=== PATIENT | female | born 1985 | race American Indian/Alaskan Native ===

== ENCOUNTER 2017-05-02 09:43 | Emergency (ER) | payer MEDICAID ==
[2017-05-02 10:28] LABS: Bilirubin,Urine NEG (Negative); Blood,Urine LG (Negative); Ketones,Urine NEG (Negative); Leukocyte Esterase,Urine NEG (Negative); Mucus,Urine FEW /HPF; Nitrite,Urine NEG (Negative); Protein,Urine <15 mg/dL mg/dL (Negative); Urobilinogen,Urine < 2.0 mg/dL (<2.0)
[2017-05-02 11:04] LABS: Basophils % (Auto) 0.3 % (0.0-1.8); Eosinophils % (Auto) 2.1 % (0.0-4.3); Hemoglobin 11.3 gm/dl (10.1-14.3); Mean Corpuscular HGB Conc 32 % (30-34); Mean Corpuscular Hemoglobin 28 pg (28-32); Mean Corpuscular Volume 85 fl (79-97); Platelet Count 252 K/mm3 (140-440); Red Cell Distribution Width 15.7 % (13.2-15.2); White Blood Count 6.3 K/mm3 (4.5-11.0)
--- NOTE | 2017-05-02 15:03 | Emergency Department Report ---
<HUYEN COLEMAN M - Last Filed: 05/02/17 18:52> ED Female HPI - General Chief complaint: Abdominal Pain Stated complaint: POSS MISCARRIAGE/5 WKS PREG Time Seen by Provider: 05/02/17 14:40 Source: patient Mode of arrival: Ambulatory Limitations: No Limitations - History of Present Illness Initial comments: PT states she is five weeks . PT reports bleeding since Friday. PT states the bleeding started off as brown and is now bright red. PT states she is having a mildly crampy pain that she rates 4/10. PT is . pt has her first release and technical records clerk appointment on Friday for this . PT states she last saw her ob/ semiconductor package symbol stamper 2 weeks ago. PT reports hx of BV but denies hx of STDs/ PID MD Complaint: vaginal bleeding Onset/Timin -: Gradual, days(s) Location: suprapubic Radiation: non-radiating Severity scale (0 -10): 4 - Related Data Home Medications Medication Instructions Recorded Confirmed Last Taken No Known Home Medications [No 08/23/15 08/23/15 Unknown Reported Home Medications] Allergies Allergy/AdvReac Type Severity Reaction Status Date / Time tea AdvReac Swelling Uncoded 05/02/17 09:56 ED Review of Systems ROS: Stated complaint: POSS MISCARRIAGE/5 WKS PREG Other details as noted in HPI ED Past Medical Hx - Past Medical History Previous Medical History?: No Hx Hypertension: No Hx Congestive Heart Failure: No Hx Diabetes: No Hx Deep Vein Thrombosis: No Hx Renal Disease: No Hx Sickle Cell Disease: No Hx Seizures: No Hx Asthma: No Hx COPD: No Hx HIV: No - Surgical History Past Surgical History?: No - Social History Smoking Status: Current Every Day Smoker Substance Use Type: Alcohol - Medications Home Medications: Home Medications Medication Instructions Recorded Confirmed Last Taken Type No Known Home Medications [No 08/23/15 08/23/15 Unknown History Reported Home Medications] ED Physical Exam - General Limitations: No Limitations General appearance: alert, in no apparent distress - Head Head exam: Present: atraumatic, normocephalic, normal inspection - Eye Eye exam: Present: normal appearance, PERRL, EOMI. Absent: conjunctival injection - ENT ENT exam: Present: normal exam, normal external ear exam - Neck Neck exam: Present: normal inspection, full ROM. Absent: tenderness, lymphadenopathy - Respiratory Respiratory exam: Present: normal lung sounds bilaterally. Absent: respiratory distress, wheezes, rales, rhonchi, stridor, chest wall tenderness - Cardiovascular Cardiovascular Exam: Present: regular rate, normal rhythm, normal heart sounds - GI/Abdominal GI/Abdominal exam: Present: soft, normal bowel sounds. Absent: tenderness, guarding, rebound, rigid - Extremities Exam Extremities exam: Present: normal inspection, full ROM - Back Exam Back exam: Present: normal inspection, full ROM. Absent: tenderness, CVA tenderness (R), CVA tenderness (L), muscle spasm, paraspinal tenderness, vertebral tenderness - Neurological Exam Neurological exam: Present: alert, oriented X3, normal gait - Psychiatric Psychiatric exam: Present: normal affect, normal mood - Skin Skin exam: Present: warm, dry, intact, normal color ED Course Vital Signs 05/02/17 05/02/17 05/02/17 09:48 14:50 16:59 Temperature 98.4 F 98.3 F Pulse Rate 88 69 Respiratory 16 18 18 Rate Blood Pressure 117/78 Blood Pressure 114/75 [Right] O2 Sat by Pulse 100 100 100 Oximetry 05/02/17 19:58 Temperature 98.3 F Pulse Rate 69 Respiratory 18 Rate Blood Pressure 117/78 Blood Pressure [Right] O2 Sat by Pulse 100 Oximetry - Reevaluation(s) Reevaluation #1: 05/02/17 14:58 PT aware of US result and need for emergent OB/ HIGH SPEED WARPER TENDER consult. Dr Ponce aware of pt and agrees with plan of care. Reevaluation #2: 05/02/17 15:52 PT aware of plan Reevaluation #3: 05/02/17 17:10 Dr Negron at pt's bedside Reevaluation #4: 05/02/17 18:01 PT was seen by WAIST FITTER. Admission was offered, pt declined. - Consultations Consultation #1: 05/02/17 14:40 Dr Sol - US WAIST FITTER - ectopic on Left 05/02/17 15:03 Dr Sol not available to give further detail on US. Dr Santos states call back later for more information Consultation #2: 05/02/17 15:14 My OBGYN called - spoke with Christie, correctional probation officer, who states Dr Negron delivery and installation subcontractor. Christie states she will inform Dr Negron about pt and us report and have her call back 05/02/17 15:47 Dr Negron called and states she will come evaluate the pt. (eta 45 min) - Pulse Oximetry Interpretation Digit-Finger Initial Pulse Oximetry Readin Actions Taken: none ED Medical Decision Making - Lab Data Result diagrams: 05/02/17 10:01 - Radiology Data Radiology results: pending US - ectopic on Left - Differential Diagnosis threatened ab, ectopic, uti Critical care attestation.: If time is entered above; I have spent that time in minutes in the direct care of this critically ill patient, excluding procedure time. ED Disposition Disposition: DC-07 LEFT AGAINST MED ADVICE Is pt being admited?: No Does the pt Need Aspirin: No Condition: Undetermined Instructions: Abdominal Pain (ED) Referrals: PRIMARY CARE, [Primary Care Provider] - 3-5 Days MISAEL NEGRON MD [Staff Physician] - 3-5 Days Forms: AMA Form <ARMANDO PONCE - Last Filed: 05/02/17 20:29> ED Course - Reevaluation(s) Reevaluation #5: 05/02/17 20:27 Patient left AGAINST MEDICAL ADVICE. Patient alert and oriented 3, risks of leaving, including , disability, paralysis, loss of quality of life were explained to the patient by staff members. Patient articulated understanding. Patient further understands that she can return to the ER right away if and when she changes her mind. 05/02/17 20:28 ED Medical Decision Making - Lab Data Result diagrams: 05/02/17 10:01
--- NOTE | 2017-05-02 15:31 | Ultrasound Report ---
OB ultrasound: patient with pain and bleeding. Endovaginal and transabdominal imaging demonstrates a retroverted uterus measuring 5.1 x 6.0 x 8.6 cm. The endometrium is minimally inhomogeneous and has a width of 25 mm. No evidence of intrauterine gestation. Images of the right ovary demonstrate measures 3.6 cm containing several follicles. The left ovary measures 3.8 cm containing a peripheral thick walled cyst that could represent a small corpus luteum. Adjacent to the uterus on the left there is a mass containing a central saclike structure measuring 5.4 mm in diameter. Within the sac there is a small ring shaped structure consistent with yolk sac. This echogenic collection within the cul-de-sac consistent with hemorrhage. Impression: The findings are consistent with a left ectopic .
--- NOTE | 2017-05-02 17:23 | Event Note ---
Date: 05/02/17 Called to evaluate patient with a possible ectopic . Patient states she started spotting dark brown blood that became bright red only when she wiped after urination. She denies pain or heavy bleeding. Patient resting in bed in ED, no distress. States she needs to leave to p/u her daughter AVSS, Abdomen soft NT. US images, report and labs reviewed, A neg. QBHCG only 1700, no evidence of blood her pelvis, abdominal exam w/o evidence of a surgical abdomen. US without obvious "ring of fire". US report and labs discussed with the patient, concern for ectopic vs early IUP(twins) or SAB explailned. Recommend admission for observation and repeat qbhcg in am. States she cannot stay because her daughter will be stranded and she does not have anyone who can pick her up. Emphasized if she jhas an ectopic it could rupture while she's driving and she could faint therefore she could have an accident that could kill her, her daughter or anyone else on the road. Also explained if she has an ectopic and it ruptures she could . She voiced understanding and still desires to leave AMA, she will call or come back to ED for any problems or concerns.
[2017-05-02 19:58] VITALS: BP 117/78
== END 2017-05-02 20:45 | disposition left against medical advice (07) ==
LOC: ED 09:43
DX: O26.891 Other specified pregnancy related conditions, first trimester (principal); R10.30 Lower abdominal pain, unspecified; F17.210 Nicotine dependence, cigarettes, uncomplicated; Z91.018 Allergy to other foods; Z3A.01 Less than 8 weeks gestation of pregnancy
CPT/HCPCS: 36415; 76801; 76817; 81001; 84702; 85025; 86850; 86900; 86901; 99284; J2790

== ENCOUNTER 2017-05-03 06:48 | Emergency (ER) | payer MEDICAID ==
[2017-05-03 07:06] VITALS: BP 104/66
--- NOTE | 2017-05-03 08:03 | Emergency Department Report ---
ED Female HPI - General Chief complaint: Vaginal Bleeding Stated complaint: FOLLOW UP Time Seen by Provider: 05/03/17 07:51 Source: patient Mode of arrival: Ambulatory Limitations: No Limitations - History of Present Illness Initial comments: Patient is a 31-year-old female referred from OB here with complaint of vaginal spotting and pain. Patient likely has a competent and is planned to go to the OR today. She is in no dizziness lightheadedness abdominal pain currently. -: Sudden Improves with: none Worsens with: none - Related Data Home Medications Medication Instructions Recorded Confirmed Last Taken No Known Home Medications [No 08/23/15 08/23/15 Unknown Reported Home Medications] Allergies Allergy/AdvReac Type Severity Reaction Status Date / Time tea AdvReac Swelling Uncoded 05/02/17 09:56 ED Review of Systems ROS: Stated complaint: FOLLOW UP Other details as noted in HPI Constitutional: denies: chills, fever Respiratory: denies: cough, shortness of breath, SOB with exertion Cardiovascular: denies: chest pain, palpitations Endocrine: denies: excessive sweating, increased urine Gastrointestinal: denies: abdominal pain, nausea Genitourinary: denies: urgency, hematuria Skin: denies: rash, lesions Neurological: as per HPI. denies: headache, weakness ED Past Medical Hx - Past Medical History Previous Medical History?: No Hx Hypertension: No Hx Congestive Heart Failure: No Hx Diabetes: No Hx Deep Vein Thrombosis: No Hx Renal Disease: No Hx Sickle Cell Disease: No Hx Seizures: No Hx Asthma: No Hx COPD: No Hx HIV: No - Surgical History Past Surgical History?: No - Family History Family history: no significant - Social History Smoking Status: Current Every Day Smoker Substance Use Type: None - Medications Home Medications: Home Medications Medication Instructions Recorded Confirmed Last Taken Type No Known Home Medications [No 08/23/15 08/23/15 Unknown History Reported Home Medications] ED Physical Exam - General Limitations: No Limitations General appearance: alert, in no apparent distress - Head Head exam: Present: atraumatic, normocephalic - Eye Eye exam: Present: normal appearance. Absent: scleral icterus, conjunctival injection - Neck Neck exam: Absent: tenderness, lymphadenopathy - Respiratory Respiratory exam: Present: normal lung sounds bilaterally. Absent: respiratory distress, wheezes - Cardiovascular Cardiovascular Exam: Present: regular rate, normal rhythm - GI/Abdominal GI/Abdominal exam: Present: soft. Absent: distended, tenderness, guarding - Neurological Exam Neurological exam: Present: alert, oriented X3 - Skin Skin exam: Present: warm, dry, intact, normal color ED Course Vital Signs 05/03/17 05/03/17 07:02 07:41 Temperature 98.4 F Pulse Rate 98 H Respiratory 18 20 Rate Blood Pressure 104/66 [Right] O2 Sat by Pulse 97 100 Oximetry ED Medical Decision Making - Medical Decision Making Patient to be admitted to the OB service. Critical care attestation.: If time is entered above; I have spent that time in minutes in the direct care of this critically ill patient, excluding procedure time. ED Disposition Clinical Impression: Ectopic Disposition: 09 OP ADMIT IP TO THIS HOSP Is pt being admited?: Yes Condition: Stable Referrals: PRIMARY CARE, [Primary Care Provider] - 3-5 Days
== END 2017-05-03 08:45 | disposition admitted as inpatient to this hospital (09) ==
LOC: ED 06:48
DX: O00.80 Other ectopic pregnancy without intrauterine pregnancy (principal); Z3A.00 Weeks of gestation of pregnancy not specified

== ENCOUNTER 2017-05-03 07:34 | Inpatient (IN) | payer MEDICAID ==
[2017-05-03] MEDS ORDERED: LACTATED RINGERS 1,000 ML IV SCH (10:00)
--- NOTE | 2017-05-03 10:43 | Short Stay Summary ---
Short Stay Documentation Date of service: 05/03/17 Narrative H&P: 31-year-old female, L1, whose last menstrual period began on March 25. She came to the emergency department yesterday thinking she had had a miscarriage since she had been bleeding since 04/29/2017. She was seen in the emergency department by the emergency doctor and by Dr. Negron. The patient had to leave for urgent family reasons and agreed to come back today for possible treatment of possible ectopic . She did return to the emergency department last night to receive RhoGAM because her blood type is A-. Her hCG yesterday was 1748, repeat today was 2522. CMP,CBC wnl Hct 33. Transvaginal ultrasonography done yesterday is strongly suggestive of left ectopic in the mid-portion of the left fallopian tube. There is no sac in the uterus. There is a small to medium amount of free fluid in the cul- de-sac. There is an apparent gestational sac in the left fallopian tube area and this sac appears to have a partially collapsed yolk sac and a pole. No obvious cardiac activity because it is too small. In my professional opinion, this is a definite left ectopic despite a fairly low level of hCG, currently at 2522. I discussed these issues with the patient, who is currently having absolutely no pain at all. I told rougher felt certain that this was a left ectopic and that she needed treatment for this. The best option for treatment at this time is intramuscular methotrexate at a dose of 50 g per metered square which she will be given after a repeat hCG and CMP and CBC is repeated today. She has already received RhoGAM. She understands the warning signs of impending rupture of an ectopic and knows to come back to the hospital immediately should this occur. She understands that roughly 15% of medically treated ectopic pregnancies and up having surgery for rupture. She also understands the follow-up for ectopic , which will be to be seen as close as possible to day 3 and day 7. Repeat hCGs will be done at that time and then she will need weekly follow-up until hCGs return to 0. Past OB history is 2 vaginal deliveries, one of which had trisomy 13 and shortly after . Known Rh negative. - History Principal diagnosis: ectopic Past Medical History: No medical history Past Surgical History: No surgical history Social history: smoking - Allergies and Medications Current Medications: Allergies tea Adverse Reaction (Uncoded 05/02/17 09:56) Swelling Home Medications Medication Instructions Recorded Confirmed Last Taken Type No Known Home Medications [No 08/23/15 08/23/15 Unknown History Reported Home Medications] Active Medications Lactated Ringer's (Lactated Ringers) 1,000 mls @ 125 mls/hr IV DIRECT HARMAN Methotrexate (Methotrexate) 88 mg 50 mg/m2 (88 mg) IM ONCE ONE Stop: 05/03/17 12:01 - Physical exam General appearance: no acute distress Lungs: Clear to auscultation, Normal air movement Breasts: deferred Heart: Regular rate Gastrointestinal: normal, no tenderness, no guarding Female Genitourinary: deferred Extremities: no ischemia Neurological: Normal gait, Normal speech, Normal tone - Hospital course Hospital course: Patient was admitted to the hospital and determined to have a left ectopic . Risk and complications were discussed with the patient and laboratory values were checked prior to giving IM methotrexate at a dose of 50 g per metered square and she was discharged for outpatient follow-up. She received Rhogam the night before. - Disposition Condition at discharge: Good Disposition: DC-01 TO HOME OR SELFCARE - Discharge Diagnoses (1) Ectopic , tubal Status: Acute Qualifiers: Intrauterine status: without intrauterine Qualified Code(s): O00.10 - Tubal without intrauterine Comment: Treated with Methotrxate after checking labs. Rhogam previously administered. Short Stay Discharge Plan Activity: no restrictions Weight Bearing Status: Full Weight Bearing Diet: regular Wound: other (N/A) Follow up with: CRYSTAL KERNS MD [Staff Physician] - 7 Days (Needs office visit on Day 3 and Day 7 (or as close as possible))
[2017-05-03 11:07] LABS: Hematocrit 33.7 % (30.3-42.9); Hemoglobin 10.7 gm/dl (10.1-14.3); Mean Corpuscular HGB Conc 32 % (30-34); Mean Corpuscular Hemoglobin 27 pg (28-32); Mean Corpuscular Volume 85 fl (79-97); Platelet Count 244 K/mm3 (140-440); Red Blood Count 3.96 M/mm3 (3.65-5.03); Red Cell Distribution Width 15.2 % (13.2-15.2); White Blood Count 6.4 K/mm3 (4.5-11.0)
[2017-05-03 11:42] LABS: Albumin/Globulin Ratio 1.2 %; Alkaline Phosphatase 35 units/L (35-129); Blood Urea Nitrogen 10 mg/dL (7-17); Calcium 8.7 mg/dL (8.4-10.2); Carbon Dioxide 24 mmol/L (22-30); Chloride 102.3 mmol/L (98-107); Glucose 88 mg/dL (65-100); Sodium 137 mmol/L (137-145); Total Protein 7.4 g/dL (6.3-8.2)
[2017-05-03] MEDS ORDERED: METHOTREXATE IM NR (12:00)
[2017-05-03 12:04] LABS: Alanine Aminotransferase 13 units/L (7-56); Anion Gap 16 mmol/L; Potassium 4.9 mmol/L (3.6-5.0)
[2017-05-03] MEDS: METHOTREXATE IM NR ×2 (14:49→14:50)
[2017-05-03 18:20] VITALS: BP 96/67
== END 2017-05-03 15:23 | disposition home or self-care (01) | DRG 777 ==
LOC: OB 07:34 → UNDOADMOB 07:34 → EDSTATUS 07:42 → OB 09:13
PROVIDERS: ADMIT Obstetrics & Gynecology; ATTEND Obstetrics & Gynecology
DX: O00.10 Tubal pregnancy without intrauterine pregnancy (principal); Z31.82 Encounter for Rh incompatibility status
CPT/HCPCS: 36415; 80053; 84702; 85027; J9260

== ENCOUNTER 2017-05-09 16:00 | Day surgery (SDC) | payer MEDICAID ==
[2017-05-09] MEDS ORDERED: BLOXIVERZ ONE (16:30)
[2017-05-09] MEDS ORDERED: ROBINUL ONE (16:30)
--- NOTE | 2017-05-09 16:38 | History and Physical Report ---
History of Present Illness Date of examination: 05/09/17 Chief complaint: Ectopic History of present illness: This is a 31year old female with a know ectopic treated with Methotrexate 05/03/2017. She presented to the office earlier today c/o mild abdominal pain and scant bleeding. Her exam was negative for a surgical abdomen. She decline surgical intervention and a plan for conservative management was established and she was allow home. She called back complaining og increased pain, dizziness and lightheadedness and presented back to the office with BP 98/60, hr 80 and tender abdomen. She was immediately sent ED by EMS for admission for laparoscopy. Past History Past Medical History: No medical history Past Surgical History: No surgical history Medications and Allergies Allergies Allergy/AdvReac Type Severity Reaction Status Date / Time tea AdvReac Swelling Uncoded 05/02/17 09:56 Home Medications Medication Instructions Recorded Confirmed Last Taken Type No Known Home Medications [No 08/23/15 08/23/15 Unknown History Reported Home Medications] Active Meds: Active Medications Cefazolin Sodium (Ancef/Sterile Water 2 Gm/20 Ml) 2 gm in 20 mls @ 80 mls/hr IV PREOP NR PRN Reason: Protocol Review of Systems All systems: negative - Genitourinary Genitourinary: abnormal vaginal bleeding Exam Vital Signs Temp Pulse Resp BP Pulse Ox 98.1 F 96 H 16 110/70 98 05/09/17 16:17 05/09/17 16:17 05/09/17 16:17 05/09/17 16:17 05/09/17 16:17 - General physical appearance Positive: well developed, well nourished, moderate distress - Respiratory Positive: normal respiratory effort - Cardiovascular Rhythm: regular - Abdomen Abdomen: Present: tender, rebound, guarding Assessment and Plan - Patient Problems (1) Ectopic , tubal Status: Acute Qualifiers: Intrauterine status: without intrauterine Qualified Code(s): O00.10 - Tubal without intrauterine Plan to address problem: Patient now unstable with surgical abdomen will proceed with laparoscopy, salpingectomy and other indicated procedures
[2017-05-09] MEDS ORDERED: PEPCID IV ONE (16:55)
[2017-05-09] MEDS ORDERED: VERSED ONE (16:55)
[2017-05-09] MEDS ORDERED: NACL 0.9% 1000 ML 1,000 ML ONE ×2 (16:55→19:59)
[2017-05-09] MEDS ORDERED: ANCEF/STERILE WATER 2 GM/20 ML 2 GM/20 ML SYRINGE IV NR (17:00)
[2017-05-09] MEDS ORDERED: DILAUDID ONE (17:10)
[2017-05-09] MEDS ORDERED: DIPRIVAN 10 MG/ML IV ONE (17:10)
[2017-05-09] MEDS ORDERED: ZEMURON IV ONE (17:12)
--- NOTE | 2017-05-09 17:18 | Anesthesia Consultation ---
Anesthesia Consult and Med Hx Date of service: 05/09/17 - Airway Anesthetic Teeth Evaluation: Poor (two broken teeth in the back) ROM Head & Neck: Adequate Mental/Hyoid Distance: Adequate Mallampati Class: Class II Intubation Access Assessment: Probably Good - Pre-Operative Health Status ASA Pre-Surgery Classification: ASA2, Emergency Proposed Anesthetic Plan: General - Pulmonary Hx Smoking: Yes (everyday smoker) Hx Asthma: No COPD: No Hx Pneumonia: No - Cardiovascular System Hx Hypertension: No - Central Nervous System Hx Seizures: No Hx Psychiatric Problems: No - Endocrine Hx Renal Disease: No Hx End Stage Renal Disease: No Hx Hypothyroidism: No Hx Hyperthyroidism: No - Hematic Hx Anemia: No Hx Sickle Cell Disease: No - Other Systems Hx Alcohol Use: Yes - Additional Comments Anesthesia Medical History Comments: ectopic
--- NOTE | 2017-05-09 17:19 | Anesthesia Day of Surgery ---
Anesthesia Day of Surgery - Day of Surgery Patient Examined: Yes Patient H&P Reviewed: Yes Patient is NPO: No (had wings @ 13:00, shot of alcohol @ 15:00)
[2017-05-09 17:28] LABS: Hematocrit 31.4 % (30.3-42.9); Hemoglobin 10.1 gm/dl (10.1-14.3); Mean Corpuscular HGB Conc 32 % (30-34); Mean Corpuscular Hemoglobin 28 pg (28-32); Mean Corpuscular Volume 86 fl (79-97); Platelet Count 242 K/mm3 (140-440); Red Blood Count 3.66 M/mm3 (3.65-5.03); Red Cell Distribution Width 15.1 % (13.2-15.2)
[2017-05-09] MEDS ORDERED: XYLOCAINE MPF 2% ONE (17:36)
[2017-05-09] MEDS ORDERED: QUELICIN ONE (17:36)
[2017-05-09] MEDS ORDERED: MARCAINE 0.5% INFILTRATI ONE ×2 (17:52)
[2017-05-09] MEDS ORDERED: NACL 0.9% IR ONE ×2 (17:52)
[2017-05-09] MEDS ORDERED: MARCAINE 0.5% 30 ML INFILTRATI ONE (17:53)
[2017-05-09] MEDS ORDERED: DECADRON ONE (17:57)
[2017-05-09] MEDS ORDERED: ZOFRAN ONE (17:57)
[2017-05-09] MEDS ORDERED: TORADOL ONE (18:38)
--- NOTE | 2017-05-09 19:16 | Operative Report ---
Operative Report Operative Report: Date of procedure: 05/09/2017 Pre-operative diagnosis: Ectopic Post-operative diagnosis: Left ectopic Procedure name(s): Laparoscopic left salpingectomy Surgeon: Yadi Negron MD Elementary Tutor: Certified surgical assistant Anesthesia: General Findings: Approximately 100 mL blood noted in her belly on initial entry into the abdomen. Large left tubal ectopic . Thin filmy adhesions involving both ovaries. Grossly normal right fallopian tube. Grossly normal ovaries bilaterally. Anesthesiologist: Dr. Rabia Crump Complications: None Estimated blood loss: Minimal Procedure: After risks, benefits, complications, consequences and alternatives for this procedure were discussed the patient, she voiced understanding and desired to proceed, she was taken to the OR where general anesthesia was induced. She was placed in the dorsal lithotomy position. Exam under anesthesia remarkable. The adnexa unremarkable. She was then prepped and draped in the usual sterile fashion. Timeout was performed. A Garcia catheter was introduced into the bladder with drainage of clear yellow urine. A bivalve speculum was introduced into the vagina. Anterior anterior lip of the cervix was grasped with a single-tooth tenaculum. The uterus was sounded to approximately 9 cm. The cervix was dilated to allow the Sargis uterine manipulator. The tenaculum and speculum were removed. Sterile gloves placed attention was turned to the abdomen. A 5 mm supraumbilical incision was made in the midline. A 5 mm Optiview trocar was introduced through this incision with scope and camera attached. No bowel, bladder, ureteral, or major vascular injury was noted. The abdomen was insufflated. Large amount of blood was noted to be in the pelvis. Patient was placed in steep Trendelenburg position. The above findings were noted. Additional 5 mm bladeless trocar was placed right lower quadrant and in the suprapubic region approximately 2 cm superior to the symphysis pubis under direct visualization. Again no bowel, bladder, ureteral or major vascular injury was noted. All trocars placed under direct visualization again no bowel, bladder, ureteral or major vascular injury was noted. The left tube was then elevated and using the 5 mm [place] LigaSure, a left salpingectomy was performed. Suprapubic incision was extended and a 10 mm weightless trocar was placed. The tube with the ectopic was placed in the Endo Catch through the 10 mm trocar. This was removed through the 10 mm suprapubic incision. Trocar was reintroduced under direct visualization. The pelvis was irrigated with warm normal saline. Grossly normal right tube and bilateral ovaries were noted. Attention was turned again to the left adnexa where hemostasis was noted. Surgicel was placed over the operative field followed by Interceed to prevent adhesions. Normal uterus was noted. The fascia of the 10 mm incision was reapproximated using 0 Vicryl using the Geoff-Alia closure device. Once hemostasis noted the procedure was ended the remaining trochars were removed the abdomen was desufflated. The incisions were infused with half percent Marcaine without epinephrine. The skin incisions were approximated using 4-0 Vicryl in a subcuticular manner. Hemostasis was noted. The uterine manipulator was removed. Hemostasis noted on the cervix. Drainage of clear yellow urine into the Garcia catheter was noted. Then the Garcia catheter was removed. Urine out was noted to be 100 mL. Patient tolerated procedure well was taken to recovery room in stable condition. Counts were correct 3
--- NOTE | 2017-05-09 19:21 | Discharge Summary ---
Providers - Providers Date of discharge: 05/09/17 Attending physician: ABIEL RESTREPO Primary care physician: STUDENT ASSISTANT Hospitalization Condition: Good Procedures: Laparoscopic Left salpingectomy Disposition: - TO HOME OR SELFCARE - Discharge Diagnoses (1) Ectopic , tubal Status: Resolved Qualifiers: Intrauterine status: without intrauterine Qualified Code(s): O00.10 - Tubal without intrauterine Comment: Treated with Methotrxate after checking labs. Rhogam previously administered. Core Measure Documentation - Palliative Care Palliative Care/ Comfort Measures: Not Applicable - Core Measures Any of the following diagnoses?: none Exam - Constitutional Vitals: Temp Pulse Resp BP Pulse Ox 96.9 F L 68 14 102/59 100 05/09/17 18:49 05/09/17 19:05 05/09/17 19:05 05/09/17 19:05 05/09/17 19:05 General appearance: Present: no acute distress - Respiratory Respiratory effort: normal Plan Activity: other (no sex. No driving.) Weight Bearing Status: Non-Weight Bearing Diet: regular Wound: open to air, keep clean and dry Special Instructions: no heavy lifting Follow up with: KARO MADDEN MD [Staff Physician] - 05/16/17 2:15 pm ([place])
--- NOTE | 2017-05-09 19:24 | Discharge Summary ---
Providers - Providers Attending physician: ABIEL RESTREPO Primary care physician: [employer] Hospitalization Condition: Good Disposition: DC-01 TO HOME OR SELFCARE - Discharge Diagnoses (1) Ectopic , tubal Status: Resolved Qualifiers: Intrauterine status: without intrauterine Qualified Code(s): O00.10 - Tubal without intrauterine Comment: Treated with Methotrxate after checking labs. Rhogam previously administered. Core Measure Documentation - Palliative Care Palliative Care/ Comfort Measures: Not Applicable - Core Measures Any of the following diagnoses?: none Exam - Constitutional Vitals: Temp Pulse Resp BP Pulse Ox 96.9 F L 68 14 102/59 100 05/09/17 18:49 05/09/17 19:05 05/09/17 19:05 05/09/17 19:05 05/09/17 19:05 Plan Activity: other (no sex, no driving.) Weight Bearing Status: Non-Weight Bearing Diet: regular Wound: open to air, keep clean and dry Special Instructions: no heavy lifting Follow up with: KARO MADDEN MD [Staff Physician] - 05/16/17 2:15 pm ([place]) Forms: Work/School Release Form
[2017-05-09] MEDS: DILAUDID IV PRN ×2 (19:55→20:25)
[2017-05-09 22:06] VITALS: BP 120/63
== END 2017-05-09 22:30 | disposition home or self-care (01) ==
LOC: ED 16:00 → OR 16:53
PROVIDERS: ATTEND Family Medicine
DX: O00.10 Tubal pregnancy without intrauterine pregnancy (principal); F17.200 Nicotine dependence, unspecified, uncomplicated; Z72.89 Other problems related to lifestyle; Z91.018 Allergy to other foods
CPT/HCPCS: 36415; 59151; 85027; 85460; 86850; 86870; 86900; 86901; 88305; A4217; J0330; J0690; J1100; J1170; J1885; J2250; J2405; J2704; J2710; J7030

== ENCOUNTER 2018-02-03 12:47 | Emergency (ER) | payer MEDICAID ==
[2018-02-03 13:02] VITALS: BP 116/74
[2018-02-03] MEDS ORDERED: TYLENOL/CODEINE PO ONE (15:57)
[2018-02-03] MEDS ORDERED: DELTASONE PO ONE (15:57)
--- NOTE | 2018-02-03 16:02 | Emergency Department Report ---
HPI - General Chief Complaint: Sore Throat Time Seen by Provider: 02/03/18 15:44 - HPI HPI: Patient is a 32-year-old female who presents to ED complaining of throat pain 4 days. Patient describes pain as throbbing in nature, 8 out of 10 intensity, nonradiating, localized to his throat. Admits pain with swallowing and eating. Patient admits decreased appetite due to throat pain. Patient admits dry, nonproductive cough. Patient denies nausea/vomiting/abdominal pain/shortness of breath/chest pain/ headache. ED Past Medical Hx - Past Medical History Hx Hypertension: No Hx Congestive Heart Failure: No Hx Diabetes: No Hx Deep Vein Thrombosis: No Hx Renal Disease: No Hx Sickle Cell Disease: No Hx Seizures: No Hx Asthma: No Hx COPD: No Hx HIV: No - Surgical History Past Surgical History?: No - Social History Smoking Status: Current Every Day Smoker Substance Use Type: None - Medications Home Medications: Home Medications Medication Instructions Recorded Confirmed Last Taken Type oxyCODONE /ACETAMINOPHEN [Percocet 1 - 2 tab PO Q6HR PRN #15 tablet 05/09/17 Unknown Rx 5/325 mg] Ibuprofen [Motrin 800 MG tab] 800 mg PO TID PRN #30 tablet 02/03/18 Unknown Rx Nystas/Diphen/Xyl Visc/Mylanta 30 ml PO TID PRN #240 ml 02/03/18 Unknown Rx [Magic Mouthwash] ED Review of Systems ROS: Stated complaint: SORE THROAT Other details as noted in HPI Constitutional: denies: chills, fever Eyes: denies: eye pain, eye discharge, vision change ENT: throat pain. denies: ear pain Respiratory: denies: cough, shortness of breath, wheezing Cardiovascular: denies: chest pain, palpitations Endocrine: no symptoms reported Gastrointestinal: denies: abdominal pain, nausea, vomiting, diarrhea Genitourinary: denies: urgency, dysuria, discharge Musculoskeletal: denies: back pain, joint swelling, arthralgia Skin: denies: rash, lesions Neurological: denies: headache, weakness, paresthesias Psychiatric: denies: anxiety, depression Hematological/Lymphatic: denies: easy bleeding, easy bruising Physical Exam - Physical Exam Vital Signs: Vital Signs 02/03/18 13:00 Temperature 99.2 F Pulse Rate 106 H Respiratory 16 Rate Blood Pressure 116/74 O2 Sat by Pulse 99 Oximetry Physical Exam: GENERAL: Alert and oriented x3, no apparent distress, Normal Gait, atraumatic. HEAD: Head is normocephalic and a-traumatic. EARS: symetrical, atraumatic, non tender, ear canal clear and moderate cerumen, tympanic membrance non inflamed. gross auditory nml bilaterally. MOUTH:Mouth is well hydrated and without lesions. Tonsils nonerythematous but moderately swollen with exudates, Uvula midline, Tongue not elevated. Mucous membranes are moist. Posterior pharynx clear, no lesions. Patent airways. NECK: Supple. Non edematous. No lymphadenopathy or thyromegaly. No C-spine tenderness LUNGS: Symetrical with respiration, No wheezing, no rales or crackles, CTAB. HEART: S1, S2 present, regular rate and rhythm without murmur, no rubs, no gallops. Non tender to palpation ABDOMEN: No organomegaly was noted,Positive bowel sounds, soft, and non- distended. . Nontender to palpation on all Quadrants, NO CVA tenderness. SKIN: Warm and dry, No lesions, No ulceration or induration present. ED Course Vital Signs 02/03/18 13:00 Temperature 99.2 F Pulse Rate 106 H Respiratory 16 Rate Blood Pressure 116/74 O2 Sat by Pulse 99 Oximetry ED Medical Decision Making - Medical Decision Making 32-year-old female presents with strep pharyngitis. ED course: Rapid strep tests ordered rapid strep test positive Patient received 1 dose of Tylenol, 1.2 million units of penicillin, 60 mg of prednisone. Fever responsive to one dose of Tylenol. Vital signs stable patient is in no acute or respiratory distress. Discussed findings with patient about the positive strep. Discussed treatment in ED with patient Discussed the patient that strep throat is contagious and to limit sharing spoons and such. Pt to be sent home on Motrin and a couple of days worth of prednisone. Discussed with patient follow-up with primary care physician. Patient verbally states he understands and will comply to follow-up. Critical care attestation.: If time is entered above; I have spent that time in minutes in the direct care of this critically ill patient, excluding procedure time. ED Disposition Clinical Impression: Strep pharyngitis, Tonsillitis Disposition: TO HOME OR SELFCARE Is pt being admited?: No Does the pt Need Aspirin: No Condition: Stable Instructions: Strep Throat (ED), Tonsillitis (ED) Additional Instructions: Make sure to follow up with the primary care physician as discussed. Take all your medications as you've been prescribed. If you have any worsening symptoms or develop new symptoms please return to ED immediately. Prescriptions: Ibuprofen [Motrin 800 MG tab] 800 mg PO TID PRN #30 tablet PRN Reason: Pain Nystas/Diphen/Xyl Visc/Mylanta [Magic Mouthwash] 30 ml PO TID PRN #240 ml PRN Reason: Sore Throat Referrals: PRIMARY CARE, [Primary Care Provider] - 3-5 Days [facility] [Outside] - 3-5 Days [facility] [Outside] - 3-5 Days [facility] [Outside] - 3-5 Days Forms: Accompanied Note, Work/School Release Form(ED) Time of Disposition: 16:55
[2018-02-03] MEDS ORDERED: BICILLIN L-A IM ONE (16:50)
== END 2018-02-03 17:16 | disposition home or self-care (01) ==
LOC: ED 12:47
DX: J02.0 Streptococcal pharyngitis (principal); J03.90 Acute tonsillitis, unspecified; F17.200 Nicotine dependence, unspecified, uncomplicated
CPT/HCPCS: 87430; 96372; 99283; J0561; J7512